=== PATIENT | female | born 1990 | race Asian ===

== ENCOUNTER 2016-10-12 09:30 | Observation (INO) | payer MEDICAID ==
[2016-10-12 11:03] LABS: % IMMATURE GRANULYOCYTES 0.8 % (0.0-1.1); ABSOLUTE IMMATURE GRANULOCYTES 0.08 10^3/uL (0.00-0.10); ADD DIFF? NO; ADD MORPH? NO; ADD SCAN? NO; ATYPICAL LYMPHOCYTE FLAG 10 (0-99); FRAGMENT RBC FLAG 0 (0-99); HEMATOCRIT 37.2 % (38.0-47.0); HEMOGLOBIN 12.5 g/dL (12.6-16.3); LEFT SHIFT FLG 0 (0-99); LIPEMIA HEMOLYSIS FLAG 80 (0-99); MEAN CELL HEMOGLOBIN 29.2 pg (27.9-34.1); MEAN CELL HEMOGLOBIN CONCENTR. 33.6 g/dL (32.4-36.7); MEAN CELL VOLUME 86.9 fL (81.5-99.8); MEAN PLATELET VOLUME 10.9 fL (8.7-11.7); PLATELET CLUMPS FLAG 0 (0-99); PLATELET COUNT 187 10^3/uL (150-400); RED BLOOD CELL COUNT 4.28 10^6/uL (4.18-5.33); RED CELL DISTRIBUTION WIDTH 12.2 % (11.5-15.2)
[2016-10-12 11:10] LABS: COLOR PALE YELLOW; LEUKOCYTE ESTERASE,URINE NEGATIVE (NEGATIVE); NITRITE,URINE NEGATIVE (NEGATIVE)
[2016-10-12 11:12] LABS: ALANINE AMINOTRANSFERASE 24 IU/L (9-52); ALBUMIN 3.5 g/dL (3.5-5.0); ALKALINE PHOSPHATASE 121 IU/L (38-126); ANION GAP 7 mEq/L (8-16); ASPARTATE AMINOTRANSFERASE 16 IU/L (14-46); BILIRUBIN,TOTAL 0.7 mg/dL (0.1-1.4); CARBON DIOXIDE 25 mEq/l (22-31); CHLORIDE 104 mEq/L (97-110); CREATININE 0.4 mg/dL (0.6-1.0); GLOMERULAR FILTRATION RATE > 60; GLUCOSE 83 mg/dL (70-100); POTASSIUM 4.4 mEq/L (3.5-5.2); SODIUM 136 mEq/L (134-144); TOTAL PROTEIN 6.7 g/dL (6.3-8.2)
--- NOTE | 2016-10-12 12:22 | OBPROG ---
OBG Progress Note Assessment/Plan: Assessment: cbc and cmp wnl cat 1 fhr no contractions previous maternal heart [facility] per patient and family voiding without difficulty Plan:dischagre to home with instructions fu or wed with [facility]. patient and family would like to switch practices discussed how this could be accomplished 10/12/16 12:20 Subjective: Complaint of sob. Complaint of pain in abdomen with movement. Occasional change in maternal beat of heart. Objective: 10/12/16 10:36 10/12/16 10:36 Total Bilirubin 0.7 mg/dL (0.1-1.4) 10/12/16 10:36 AST 16 IU/L (14-46) 10/12/16 10:36 ALT 24 IU/L (9-52) 10/12/16 10:36 Current Contraction Pattern: Regular FHR (bpm): 135 FHR Pattern Variability: Moderate FHR Category: 1 Membranes: Intact - Physical Exam General Appearance: WD/WN, alert, no apparent distress Respiratory: chest non-tender, lungs clear, normal breath sounds Cardiac/Chest: regular rate, rhythm Abdomen: normal bowel sounds Membranes: Intact Extremities: normal range of motion, Skip's sign (negative bilaterally) DTR- Lower Extremities: Knee (R): 1+, Knee (L): 1+ (no clonus bilaterally) Skin: normal color, warm/dry Neuro/Psych: no motor/sensory deficits, alert, normal mood/affect, oriented x 3 ICD10 Worksheet Patient Problems: Problems Problem Status Onset Abdominal pain affecting , antepartum Acute Racing heart beat Acute SOB (shortness of breath) Acute - ICD10 Problem Qualifiers (1) Abdominal pain affecting , antepartum (2) SOB (shortness of breath) (3) Racing heart beat
--- NOTE | 2016-10-12 13:20 | GHP ---
[f rep st] HISTORY AND PHYSICAL DATE OF ADMISSION: 10/12/2016 HISTORY OF PRESENT ILLNESS: Patient is a 26-year-old, 2, para 1, who comes into Labor and D elivery on 10/12/2016 with complaints of upper right abdominal pain, racing heart, as well as shortn ess of breath. Patient's CADENCE is 11/16/2016; this makes the patient 35 and 3/7th weeks. Previous pre gnancy history in June of 2012 gestational age 40 week, 3.2 gram male, normal spontaneous vagina l delivery. MEDICAL HISTORY: Benign. SOCIAL HISTORY: No tobacco. No alcohol. No illicit drug use. ALLERGIES: The patient has no allergies to any medications. OBSTETRIC HISTORY: Early ultrasound on 04/01/2016 at 7 weeks and 2 days confirmed dating. PAST SURGICAL HISTORY: No significant surgical history. LABORATORY DATA: Patient is AB-positive, antibody negative. Rubella is immune. RPR is nonreactive . Hepatitis is negative. HIV is negative. Chlamydia and gonorrhea are negative. Diabetes screen: The 1-hour was abnormal. The 3-hour was within normal limits. AFP was negative. PHYSICAL ASSESSMENT: GENERAL: Patient is awake, alert, oriented x3. LUNGS: Clear bilaterally. A BDOMEN: Bowel sounds are positive in all 4 quadrants. Abdomen was soft on palpation. EXTREMITIES: DTRs are 1+ bilaterally. Homans sign was negative bilaterally, and patient had no clonus. PELVIC : Category 1 heart rate. No contractions. No regular contractions were noted on the monitor . Patient denied any contractions. ASSESSMENT AND PLAN: Within short order of patient coming into Labor and Delivery, pain dissipated and patient felt better. Patient had previously been worked up at [facility] for abnormally ra cing heart rate. Discussed with patient shortness of breath normal in . Vital signs were within normal limits. O2 saturation was within normal limits. Patient was afebrile. Patient was reassured. Encouraged patient to follow up with [facility] on Wednesday or Wednesday for fu rther assessment. Patient and family verbalized understanding of plan of care. Patient and family also requested information on how to transfer care to [facility], as well as [facility]. Resources were given to patient and family to answer these questions. Patient was a lso given discharge instructions: Leaking bleeding, cramping, baby not moving, to [facility] or to the emergency room. /[id number]/MODL
== END 2016-10-12 11:52 | disposition home or self-care (01) ==
LOC: FLD 09:30
PROVIDERS: ADMIT Advanced Practice Midwife; ATTEND Obstetrics & Gynecology
DX: O99.89 Other specified diseases and conditions complicating pregnancy, childbirth and the puerperium (principal); R10.11 Right upper quadrant pain; R00.2 Palpitations; R06.02 Shortness of breath; Z3A.35 35 weeks gestation of pregnancy
CPT/HCPCS: G0378 ×2